=== PATIENT | female | born 1960 | race Caucasian/White ===

== ENCOUNTER → 2016-07-31 | Outpatient (REF) | payer MEDICARE ==
[~2016-07-31] MED LIST: AMIT50TA PO; BACL10TA2 PO; BUTR20DI2 TD; HYDR2TAB2 PO; METH10TA2 PO; NYST50SS SS; SYNT100T PO
== END ==
LOC: M LAB REF 12:24
PROVIDERS: ATTEND Surgery
DX: T81.31XA Disruption of external operation (surgical) wound, not elsewhere classified, initial encounter (principal); L89.323 Pressure ulcer of left buttock, stage 3
CPT/HCPCS: 15271; 85652; 86140; 87070; 87077; 87186; Q4131

== ENCOUNTER → 2017-03-05 | Outpatient (REF) | payer MEDICARE ==
[~2017-03-05] MED LIST changes: +BUTR20DI TD; -BUTR20DI2 TD
== END ==
LOC: M LAB REF 17:41
PROVIDERS: ATTEND Surgery
DX: T81.31XA Disruption of external operation (surgical) wound, not elsewhere classified, initial encounter (principal); L89.323 Pressure ulcer of left buttock, stage 3; Z96.0 Presence of urogenital implants; X58.XXXA Exposure to other specified factors, initial encounter; Y92.9 Unspecified place or not applicable
CPT/HCPCS: 15271; 84520; 85652; 86140; Q4131

== ENCOUNTER → 2017-04-04 | Outpatient (REF) | payer MEDICARE ==
[2017-04-04 17:37] LABS: ANION GAP 9 MEQ/L (8-16); BLOOD UREA NITROGEN 7 MG/DL (7-18); CALCIUM LEVEL 9.2 MG/DL (8.5-10.1); CARBON DIOXIDE LEVEL 26 MEQ/L (21-32); CHLORIDE LEVEL 108 MEQ/L (98-107); CREATININE FOR GFR 0.48 MG/DL (0.55-1.02); GLOMERULAR FILTRATION RATE > 60.0 (>51); POTASSIUM SERUM 4.5 MEQ/L (3.5-5.1); SODIUM LEVEL 143 MEQ/L (136-145)
[2017-04-04 19:12] LABS: GLUCOSE, FASTING 35 MG/DL (70-105)
== END ==
LOC: M LAB REF 16:19
PROVIDERS: ATTEND Surgery
DX: T81.31XA Disruption of external operation (surgical) wound, not elsewhere classified, initial encounter (principal); Y83.8 Other surgical procedures as the cause of abnormal reaction of the patient, or of later complication, without mention of misadventure at the time of the procedure
CPT/HCPCS: 80048; C5271; Q4117